=== PATIENT | female | born 1970 | race Caucasian/White ===

== ENCOUNTER 2024-03-16 14:34 | Emergency (ER) | payer BC, SELFPAY ==
[2024-03-16 14:36] VITALS: BP 131/89; PULSE 84; RESP 18; TEMP 36.2; O2SAT 100; BMI 28.2
--- NOTE | 2024-03-16 14:47 | EDS_ITS ---
HPI History of Present Illness Chief Complaint: Other, Pain/Inj Informant: patient Onset/Context/Timing Onset: Weeks (2) Context: Gradual Onset Timing: Continuous Quality: Aching Location: Left jaw and throat area Worsened by: Opening her jaw Relieved by: Nothing Narrative Narrative: Patient presents with a sore throat that has been getting worse over the past 2 weeks. Patient states it is gradually getting worse. Patient states she went to urgent care today. Patient states that she was referred to the emergency department for possible peritonsillar abscess. Patient states her pain is aching. Patient states it is worse when she opens her jaw to eat. Patient is nothing seems to help with it. Patient states it is mainly on the left side of her throat and into her jaw. Patient denies any fevers or chills. Patient denies any nausea or vomiting. PFSH PFSH Medical History no medical history no medical history Home Medications amoxicillin 875 mg-potassium clavulanate 125 mg tablet 875 mg (0.875 x 875-125 mg) PO Q12H #20 TABLETS 03/16/24 [Rx Last Taken Unknown] Allergy/AdvReac Type Severity Reaction Status Date / Time No Known Allergies Allergy Verified 03/16/24 14:35 Surgical History no surgical history no surgical history Social History Smoking Status: Current every day smoker tobacco type: cigarettes ROS ROS ED Constitutional Constitutional ED: Denies chills or fever(s) Eyes Eyes: Denies blurry vision or change in vision ENT ENT ED: Reports sore throat; Denies rhinorrhea Cardiovascular Cardiovascular: Denies chest pain or palpitations Respiratory/Chest Respiratory/Chest: Denies cough or dyspnea Gastrointestinal Gastrointestinal: Denies nausea or vomiting Genitourinary Genitourinary ED: Denies dysuria or hematuria Musculoskeletal Musculoskeletal: Denies back pain or neck pain Integumentary Denies abscess or rash Neurologic Neurologic: Denies headache(s) or weakness Allergic/Immunologic Allergic/Immunologic ED: Denies mouth swelling or urticaria EXAM Physical Exam Const Vital Signs: 03/16/24 14:36 Temperature 97.1 F L Temperature Source Temporal Pulse Rate 84 Respiratory Rate 18 Blood Pressure 131/89 H Blood Pressure Mean 103 Pulse Ox 100 Oxygen Delivery Method Room Air Positive well nourished and well developed General Appearance ED: well developed and NAD HEENT Reports moist mucous membranes HEENT Narrative: Oropharynx is erythematous. There is some swelling over the left tonsillar area and peritonsillar area. Airway is patent. Neck is supple. Trachea is midline. There is mild left anterior cervical lymphadenopathy noted. There is minimal tenderness. Neck supple and no JVD Resp normal respiratory effort and clear to auscultation bilaterally Cardio regular rate and regular rhythm GI non-tender and non-distended Palpation: soft Neuro oriented x3, CN's II-XII intact bilaterally and no sensory deficits noted Sensorium / Orientation: alert Motor Exam: strength 5/5 throughout Psych mental status grossly normal MDM MDM MDM Narrative Medical decision making narrative: Differential diagnosis includes strep pharyngitis, viral pharyngitis, and peritonsillar abscess. CT scan of the soft tissue neck will be obtained to assess for peritonsillar abscess. Rapid strep will be obtained to assess for strep pharyngitis. CBC will be obtained to assess for leukocytosis and anemia. Basic metabolic profile will be obtained to assess for electrolyte abnormality and renal function. Lab Data Attestation: I reviewed the patient's lab results. Lab results narrative: CBC was reviewed. There is a mild leukocytosis of 12.4. Remainder is within normal limits. Basic metabolic profile was reviewed and was within normal limits. Labs: Laboratory Results - last 24 hr 03/16/24 15:14 WBC 12.4 H RBC 5.04 Hgb 14.5 Hct 44.7 MCV 88.7 MCH 28.8 MCHC 32.4 RDW Std Deviation 41.6 RDW Coeff of [place] 12.9 Plt Count 285 MPV 11.2 Immature Gran % (Auto) 0.600 Neut % (Auto) 76.2 H Lymph % (Auto) 14.6 L [place] % (Auto) 5.3 Eos % (Auto) 2.8 Baso % (Auto) 0.5 Absolute Neuts (auto) 9.4 H Absolute Lymphs (auto) 1.81 Nucleated RBC % 0 Sodium 140 Potassium 3.6 Chloride 110 H Carbon Dioxide 23.0 Anion Gap 7 BUN 9 Creatinine 0.69 Estim Creat Clear Calc 111.73 Est GFR (MDRD) Af Amer 114 Est GFR (MDRD) Non-Af 94 BUN/Creatinine Ratio 13.1 Glucose 85 Calcium 9.4 Radiography Diagnostic Testing: Clinical Impression(s) from Imaging Studies Soft Tissue Neck CT 03/16/24 14:57 IMPRESSION: Left-sided tonsillitis with an 8.7 x 7.2 mm peritonsillar abscess. No airway compromise. Electronically Signed: Emre Cota MD at 16:09 EDT , ADDENDUM: 03/16/24 1619 IMPRESSION: Left-sided tonsillitis with an 8.7 x 7.2 mm peritonsillar abscess. No airway compromise. N.B. : The above Results were Read Back by Emre Cota MD to Ho Guerin DO, and understanding confirmed on 03/16/2024 16:12:13 (ET). Electronically Signed: Emre Cota MD at 16:09 EDT , CT scan of the soft tissue neck was obtained. There is left-sided tonsillitis with an 8.7 x 7.2 mm peritonsillar abscess. There is no airway compromise noted. This was interpreted by the radiologist was also independently reviewed by myself. Treatment and Re-Evaluation :: Smoking cessation was discussed. Patient was given IV fluids and Unasyn. The left peritonsillar area was anesthetized with 1% plain lidocaine locally. Aspiration was attempted with 18-gauge needle and 10 cc syringe. There is no purulent drainage noted on attempted aspiration. Patient was given a prescription for Augmentin. Patient was instructed to follow-up with ENT in 3 to 5 days. Patient was instructed to return if worse in any way. Patient was instructed to eat soft foods. Patient was instructed to eat ice cubes to help with the swelling. Patient understood and was agreeable with the plan. All questions were answered. Discharge Plan Triage Chief Complaint: Other, Pain/Inj ED Provider: Ho Guerin Dx/Rx/DC Orders Clinical Impression: Abscess, peritonsillar, Tobacco use disorder Instructions: ED Peritonsillar Abscess Prescriptions: New amoxicillin-pot clavulanate [amoxicillin-pot clavulanate] 848-125 mg tablet 875 mg PO Q12H Qty: 20 0RF Primary Care Provider: Care Physician,No Primary Referrals: Kavita Millard DO [Med Staff - Cover Making Machine Operator] - 5-7 Days Artem Lee MD [Med Staff - Active Staff] - 2 Days Disposition Disposition: Home, Self Care
--- NOTE | 2024-03-16 14:57 | CT_ITS ---
We are attempting to reach an attending provider to discuss findings. An addendum with communication details will be sent when the communication is complete. STUDY: CT SOFT TISSUE NECK WITH CONTRAST REASON FOR EXAM: Female, 54 years old. Pharyngitis TECHNIQUE: The patient was scanned in a multi-detector CT scanner. High resolution transaxial imaging was performed following intravenous administration of 75 ml of Isovue 370 contrast material. Sagittal and coronal images were reconstructed. Individualized dose optimization techniques were used for this CT. COMPARISON: None. FINDINGS: Normal bilateral parotid glands. Normal bilateral resin maker spaces. Normal bilateral parapharyngeal spaces. Normal bilateral carotid spaces. Normal bilateral sublingual and submandibular glands and spaces. Normal visualized nasopharynx. Normal retropharyngeal space. Normal perivertebral space. Left-sided tonsillitis with an 8.7 x 7.2 mm peritonsillar abscess. No airway compromise. The visualized tongue, tongue base and oropharynx are normal. The visualized cervical lymph nodes (levels I-) are within normal size limits, and maintain normal morphology. Normal epiglottis, bilateral vallecula and hypopharynx. The pre-epiglottic and paraglottic adipose spaces are normal. Normal visualized bilateral piriform sinuses, aryepiglottic folds, vocal cords, and arytenoid-cricoid articulations. Normal subglottic trachea. Normal bilateral lobes of the thyroid gland. Normal visualized pulmonary apices. Normal visualized paranasal sinuses. Normal visualized cervical spine. CT/Soft Tissue Neck WITH Contrast IMPRESSION: Left-sided tonsillitis with an 8.7 x 7.2 mm peritonsillar abscess. No airway compromise. Electronically Signed: Emre Cota MD at 16:09 EDT ,
[2024-03-16] MEDS: 0.9% Normal Saline (1000mL) 1,000 ML 1000 ML IV (15:21)
[2024-03-16] MEDS: Ampicillin/Sulbactam 3 GM in 0.9% Normal Saline (100mL MB+) 100 ML IV (15:21)
[2024-03-16 15:27] LABS: Absolute Lymphocyte Count 1.81 X10^3/uL (0.83-4.51); Absolute Neutrophil Count 9.4 X10^3/uL (2.0-7.7); Basophil# 0.06 X10^3/uL; Basophil% 0.5 % (0-1); Eosinophil# 0.35 X10^3/uL; Eosinophils% 2.8 % (0-5); Hematocrit 44.7 % (37-47); Hemoglobin 14.5 g/dL (12.0-15.0); Lymphocyte # 1.81 X10^3/ul (0.83-4.51); Lymphocyte % 14.6 % (19-41); Mean Corp Hgb Conc 32.4 g/dL (32-36); Mean Corpuscular Hgb 28.8 pg (27.0-32.0); Mean Corpuscular Volume 88.7 fL (81-99); Mean Platelet Vol. 11.2 fl (6.2-12.0); Monocyte# 0.66 X10^3/uL; Monocyte% 5.3 % (0-10); NRBC Flagged by Analyzer 0 % (0-5); Neutrophil # 9.42 X10^3/uL (2.7-7.7); Neutrophil % 76.2 % (47-70); Platelet Count 285 K/mm3 (150-450); RBC Distribution Width CV 12.9 % (11.6-14.6); RBC Distribution Width SD 41.6 fl (35.1-43.9); Red Blood Count 5.04 M/mm3 (4.2-5.4); White Blood Count 12.4 K/mm3 (4.4-11.0)
[2024-03-16 15:39] LABS: Anion Gap 7 (5-15); BUN 9 mg/dL (7-18); BUN/Creat Ratio 13.1 RATIO (10-20); Calcium,Total 9.4 mg/dL (8.5-10.1); Chloride 110 mmol/L (98-107); Creatinine, Serum 0.69 mg/dL (0.55-1.02); EST Glomerular Filtration Rate 94 mL/min (>60); Est Glom Filt Rate - Afr Amer 114 mL/min (>60); Estimated Creatinine Clearance 111.73 ml/min; Glucose 85 mg/dL (74-106); Potassium 3.6 mmol/L (3.5-5.1); Sodium Level 140 mmol/L (136-145)
[2024-03-16] MEDS: Lidocaine 1% (20 ml mdv) 20 ML Vial INFILT (16:28)
[2024-03-16 16:34] VITALS: BP 129/90; PULSE 67; RESP 16; TEMP 35.9; O2SAT 100
[2024-03-16 17:11] VITALS: BP 129/90; PULSE 67; RESP 16; TEMP 35.9; O2SAT 100
== END 2024-03-16 17:12 | disposition home or self-care (01) ==
PROVIDERS: Emergency Provider Emergency Medicine; Visit Provider Emergency Medicine
DX: J36 Peritonsillar abscess (principal); F17.210 Nicotine dependence, cigarettes, uncomplicated
CPT/HCPCS: 70491; 80048; 85025; 96365; 99283; J7030; Q9967; A4216; J0295

== ENCOUNTER → 2024-08-07 | Outpatient (CLI) | payer BC, SELFPAY ==
--- NOTE | 2024-08-07 12:54 | RAD_ITS ---
STUDY: X-RAY - RIGHT WRIST REASON FOR EXAM: Female, 54 years old. Pain following injury. TECHNIQUE: 3 view(s) of the wrist were obtained. COMPARISON: None. FINDINGS: Normal visualized distal radius and ulna. Normal radiocarpal articulation. Normal distal radioulnar articulation. Normal carpal bones. Normal carpal articulations. Normal carpometacarpal articulation of the thumb. Normal second through fifth carpometacarpal articulations. Normal visualized metacarpal bones. The soft tissue structures are unremarkable. RAD/Wrist min 3 Views IMPRESSION: Normal x-ray examination of the wrist. Electronically Signed: Chris Trivedi MD at 13:34 EDT ,
--- NOTE | 2024-08-07 12:54 | RAD_ITS ---
STUDY: X-RAY - RIGHT HAND REASON FOR EXAM: Female, 54 years old. Pain. TECHNIQUE: 3 view(s) of the hand. COMPARISON: None. FINDINGS: Normal radiocarpal articulation. Normal distal radioulnar joint. Normal visualized carpal bones. Normal carpal articulations Normal carpometacarpal articulation of the thumb. Normal second through fifth carpometacarpal joints. Normal metacarpi. Normal metacarpophalangeal joint of the thumb. Normal interphalangeal joint of the thumb. Normal proximal and distal phalanges of the thumb. Normal metacarpophalangeal joints of the second through fifth fingers. Normal proximal and distal interphalangeal joints of the second through fifth fingers. Normal phalanges of the second through fifth fingers. The soft tissue structures are unremarkable. RAD/Hand Min 3 Views IMPRESSION: Normal x-ray examination of the hand. Electronically Signed: Chris Trivedi MD at 13:35 EDT ,
== END | disposition home or self-care (01) ==
LOC: MTRAD 12:54
PROVIDERS: Referring Provider Physician Assistant; Visit Provider Physician Assistant
DX: M79.641 Pain in right hand (principal); M25.531 Pain in right wrist
CPT/HCPCS: 73110; 73130